=== PATIENT | male | born 1950 | race Caucasian/White ===

== ENCOUNTER 2020-04-14 05:25 | Emergency (ER) | payer MEDICARE, OTHER ==
[2020-04-14] MEDS ORDERED: NORMAL SALINE 1000 ML 1,000 ML IV ONE (11:13)
--- NOTE | 2020-04-14 11:17 | ER Document Report ---
ED General - General Chief Complaint: Constipation Stated Complaint: STOMACH PAIN/CONSTIPATION Time Seen by Provider: 04/14/20 10:40 Primary Care Provider: BEENA,LORNE [Primary Care Provider] - Follow up as needed - HPI Notes: Chief complaint: Constipation History of present illness: Weight has been stable. 69-year-old male presents with 5 days history of constipation and some abdominal cramping. No fever, chills, nausea or vomiting. Intermittent cramping in left upper quadrant. Patient took multiple [id number] laxatives without success. Has been seen twice at an urgent care center and he tried some oral mag citrate and fleets enemas unsuccessfully. Patient notes that he had a normal colonoscopy over 15 years ago. No follow-up study since then. He normally takes no regular medications and has no known allergies. He is a non-smoker and denies any use o f drugs or alcohol. Past Medical History - General Information source: Patient, Relative - Social History Smoking Status: Never Smoker Frequency of alcohol use: None Drug Abuse: None Family History: Reviewed & Not Pertinent - Past Medical History Cardiac Medical History: Reports: None Pulmonary Medical History: Reports: None Endocrine Medical History: Denies: Hx Diabetes Mellitus Type 1, Hx Diabetes Mellitus Type 2 Renal/ Medical History: Reports: None Malignancy Medical History: Reports None GI Medical History: Reports: None Past Surgical History: Reports: None Review of Systems - Review of Systems Notes: Constitutional: Negative for fever. HENT: Negative for sore throat. Eyes: Negative for visual changes. Cardiovascular: Negative for chest pain. Respiratory: Negative for shortness of breath. Gastrointestinal: As per HPI. Genitourinary: Negative for dysuria. Musculoskeletal: Negative for back pain. Skin: Negative for rash. Neurological: Negative for headaches, weakness or numbness. 10 point ROS negative except as marked above and in HPI. Physical Exam - Vital signs Vitals: Temp Pulse Resp BP Pulse Ox 98.2 F 99 18 175/97 H 97 04/14/20 05:42 04/14/20 05:42 04/14/20 05:42 04/14/20 05:42 04/14/20 05:42 Interpretation: Hypertensive - Notes Notes: GENERAL: Male patient approximately stated age appearing in no acute distress. SKIN: Good turgor no rashes. HEAD: Normocephalic atraumatic. EYES: PERRLA. EOMI. Conjunctivae and sclerae clear. EARS: CANALS AND TMS CLEAR. NOSE: CLEAR. MOUTH: Moist mucosa. Good dentition. No stridor or edema. No drooling. NECK: Supple. No masses or thyromegaly. No adenopathy. Carotids 2+ without bruits. No JVD. BACK: Symmetrical without tenderness. CHEST: Respirations unlabored. Breath sounds clear and symmetrical. HEART: Regular rhythm. No murmur gallop or rub. ABDOMEN: Mild tenderness left upper quadrant. Soft without masses, organomegaly or rebound. Bowel sounds normally active. No bruits. Rectal: Normal tone. No stool in rectal vault. Prostate smooth symmetrical and mildly enlarged. EXTREMITIES: No edema. No calf tenderness. Cap refill less than 1.5 seconds. Dorsalis pedis and posterior tibial pulses 3+ and symmetrical. NEUROLOGICAL: GCS 15. Alert and oriented x3. Normal gait. Fluent speech. Cranial nerves II through XII intact. Sensorimotor and cerebellar normal. Normal tone. PSYCHIATRIC: Appropriate affect. Course - Re-evaluation Re-evalutation: 04/14/20 15:22 Labs remarkable for an elevated glucose in the 300s with otherwise normal chemistry profile. Patient now "remembers" that he has been told that he has type 2 diabetes. He admits he is not following a diet. They recommended Metformin to him in the past but he never started the medication. [place] and has not yet established with a local physician. Acute abdominal series was unremarkable except for retained stool. We gave him a mineral oil and warm tap water enema with good results. We will send him out on MiraLAX and advised him that he needs to see a GI specialist to get a colonoscopy. He says he already has an appointment with them for next month. I checked a hemoglobin A1c level for him his diabetes is clearly out of control with a value of 14. He is agreeable to a trial of Metformin so we will start this for now referred back to his primary care doctor. Findings, clinical impression and plan of treatment have been discussed with patient/family. Understanding of current findings and recommendations has been acknowledged by them and there is agreement regarding disposition and follow-up. - Vital Signs Vital signs: Temp Pulse Resp BP Pulse Ox 98.2 F 99 19 176/98 H 99 04/14/20 05:42 04/14/20 05:42 04/14/20 11:23 04/14/20 13:30 04/14/20 13:30 - Laboratory Results Result Diagrams: 04/14/20 11:31 04/14/20 11:31 Laboratory Results Interpreted: 04/14/20 04/14/20 11:31 11:31 Sodium 134.0 L Chloride 97 L Glucose 311 H Hemoglobin A1c % > 14.0 H AST 13 L Critical Laboratory Results Reviewed: Yes Attending or Supervising Physician who Reviewed Labs: PACO ALVAREZ - Radiology Results Critical Radiology Results Reviewed: No Critical Results Discharge - Discharge Clinical Impression: Constipation, Diabetes mellitus type 2 Condition: Stable Disposition: HOME, SELF-CARE Instructions: Constipation ([facility]) Prescriptions: Metformin HCl [Glucophage 500 mg Tablet] 500 mg PO BID #60 tablet Polyethylene Glycol 3350 [Miralax Powder 17 gm/Packet] 1 packet PO DAILY #1 pkg Referrals: LOCALMD,NO [Primary Care Provider] - Follow up as needed
[2020-04-14] MEDS ORDERED: MINERAL OIL 30 ML UDCUP PR ONE (11:55)
[2020-04-14 12:02] LABS: ABSOLUTE EOSINOPHILS # (AUTO) 0.1 10^3/uL (0.0-0.6); ABSOLUTE LYMPHOCYTES (AUTO) 2.2 10^3/uL (0.5-4.7); ABSOLUTE MONOCYTES (AUTO) 0.8 10^3/uL (0.1-1.4); ABSOLUTE NEUT (AUTO) 4.4 10^3/uL (1.7-8.2); BASOPHILS % (AUTO) 0.6 % (0-2); EOSINOPHILS % (AUTO) 1.4 % (0-6); HEMATOCRIT 44.8 % (37.9-51.0); HEMOGLOBIN 15.4 g/dL (13.5-17.0); MEAN CORPUSCULAR HEMOGLOBIN 30.9 pg (27.0-33.4); MEAN CORPUSCULAR HGB CONC 34.3 g/dL (32.0-36.0); MEAN CORPUSCULAR VOLUME 90 fl (80-97); MONOCYTES % (AUTO) 10.4 % (3-13); PLATELET COUNT 286 10^3/uL (150-450); RED BLOOD COUNT 4.97 10^6/uL (4.35-5.55); RED CELL DISTRIBUTION WIDTH 13.6 % (11.5-14.0); SEGMENTED NEUTROPHILS % (AUTO) 58.6 % (42-78); TOTAL CELLS COUNTED % (AUTO) 100 %; WHITE BLOOD COUNT 7.6 10^3/uL (4.0-10.5)
[2020-04-14 12:09] LABS: ALBUMIN 3.8 g/dL (3.5-5.0); ALKALINE PHOSPHATASE 64 U/L (38-126); ANION GAP 9 (5-19); ASPARTATE AMINO TRANSFERASE 13 U/L (17-59); BILIRUBIN,DIRECT 0.2 mg/dL (0.0-0.4); BILIRUBIN,TOTAL 0.7 mg/dL (0.2-1.3); BLOOD UREA NITROGEN 12 mg/dL (7-20); CALCIUM 9.4 mg/dL (8.4-10.2); CARBON DIOXIDE 28 mmol/L (22-30); CHLORIDE 97 mmol/L (98-107); GLUCOSE 311 mg/dL (75-110); POTASSIUM 4.2 mmol/L (3.6-5.0); TOTAL PROTEIN 6.7 g/dL (6.3-8.2)
--- NOTE | 2020-04-14 12:10 | RADIOLOGY REPORT (SQ) ---
EXAM DESCRIPTION: ACUTE ABDOMEN SERIES IMAGES COMPLETED DATE/TIME: 04/14/2020 11:54 am REASON FOR STUDY: abd. pain, constipation COMPARISON: None. NUMBER OF VIEWS: Three views. TECHNIQUE: Frontal chest, supine abdomen and upright/decubitus abdomen radiographic images acquired. LIMITATIONS: None. FINDINGS: CHEST: Lungs clear of infiltrates. FREE AIR: None. No abnormal gas collections. BOWEL GAS PATTERN: Nonobstructive pattern. No dilated loops or air fluid levels. CALCIFICATIONS: No suspicious calcifications. HARDWARE: None in the abdomen. SOFT TISSUES: No gross mass or suggestion of organomegaly. BONES: No acute fracture. No worrisome bone lesions. OTHER: No other significant finding. IMPRESSION: NO RADIOGRAPHIC EVIDENCE FOR ACUTE ABDOMINAL DISEASE. TECHNICAL DOCUMENTATION: JOB ID: [id number] 2010 [employer]- All Rights Reserved Reading location - IP/workstation name: [email or web address]
[2020-04-14 15:49] VITALS: BP 147/94
== END 2020-04-14 15:55 | disposition home or self-care (01) ==
LOC: ER 05:25
DX: K59.00 Constipation, unspecified (principal); R10.12 Left upper quadrant pain; R10.812 Left upper quadrant abdominal tenderness; E11.65 Type 2 diabetes mellitus with hyperglycemia
CPT/HCPCS: 99284; 96360; 96361; 36415; 85025; 80053; 83036; 74022; A9270; J7030; J3490

== ENCOUNTER 2020-04-16 20:52 | Emergency (ER) | payer MEDICARE, OTHER ==
--- NOTE | 2020-04-16 22:48 | ER Document Report ---
ED Medical Screen (RME) - General Chief Complaint: Abdominal Pain Stated Complaint: STOMACH PAIN,CONSTIPATION Time Seen by Provider: 04/16/20 22:42 Primary Care Provider: LORNE HARGROVE [Primary Care Provider] - Follow up as needed - HPI Notes: Patient is a 69-year-old male with a history of HTN and DM who presents with abdominal pain and constipation. Patient was seen in the ED 2 days ago and was treated with a enema which provided no relief here in the ED. However, since returning home patient has not had a bowel movement even as he continues to take MiraLAX and Dulcolax. He continues to report pain abdominal pressure. He denies nausea, vomiting, and fever. - Related Data Allergies/Adverse Reactions: No Known Allergies Allergy (Unverified 04/14/20 16:03) Past Medical History Endocrine Medical History: Denies: Hx Diabetes Mellitus Type 1, Hx Diabetes Mellitus Type 2 Physical Exam - Vital signs Vitals: Temp Pulse Resp BP Pulse Ox 98.5 F 85 20 146/92 H 96 04/16/20 21:06 04/16/20 21:06 04/16/20 21:06 04/16/20 21:06 04/16/20 21:06 - Abdominal Bowel sounds: Normal Tenderness: Nontender Course - Re-evaluation Re-evalutation: I have greeted and performed a rapid initial assessment of this patient. A comprehensive ED assessment and evaluation of the patient, analysis of test r esults and completion of medical decision making process will be conducted by an additional ED providers. - Vital Signs Vital signs: Temp Pulse Resp BP Pulse Ox 98.5 F 85 20 146/92 H 96 04/16/20 21:06 04/16/20 21:06 04/16/20 21:06 04/16/20 21:06 04/16/20 21:06 Doctor's Discharge - Discharge Referrals: LORNE HARGROVE [Primary Care Provider] - Follow up as needed
--- NOTE | 2020-04-16 23:29 | RADIOLOGY REPORT (SQ) ---
CLINICAL HISTORY: abdominal pain/constipation COMPARISON: None. 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 There are no abnormal radiopaque foreign bodies or abnormal calcifications. Osseous structures are grossly unremarkable. The heart is normal in size. There is mild bibasilar atelectasis. IMPRESSION: Constipation.
[2020-04-17 00:40] LABS: ABSOLUTE BASOPHILS # (AUTO) 0.1 10^3/uL (0.0-0.2); ABSOLUTE EOSINOPHILS # (AUTO) 0.1 10^3/uL (0.0-0.6); ABSOLUTE LYMPHOCYTES (AUTO) 2.2 10^3/uL (0.5-4.7); ABSOLUTE MONOCYTES (AUTO) 0.8 10^3/uL (0.1-1.4); ABSOLUTE NEUT (AUTO) 4.5 10^3/uL (1.7-8.2); BASOPHILS % (AUTO) 0.9 % (0-2); EOSINOPHILS % (AUTO) 1.7 % (0-6); HEMATOCRIT 48.5 % (37.9-51.0); HEMOGLOBIN 16.8 g/dL (13.5-17.0); LYMPHOCYTES % (AUTO) 29.1 % (13-45); MEAN CORPUSCULAR HEMOGLOBIN 31.8 pg (27.0-33.4); MEAN CORPUSCULAR HGB CONC 34.6 g/dL (32.0-36.0); MEAN CORPUSCULAR VOLUME 92 fl (80-97); PLATELET COUNT 331 10^3/uL (150-450); RED BLOOD COUNT 5.27 10^6/uL (4.35-5.55); RED CELL DISTRIBUTION WIDTH 13.6 % (11.5-14.0); SEGMENTED NEUTROPHILS % (AUTO) 58.3 % (42-78); TOTAL CELLS COUNTED % (AUTO) 100 %; WHITE BLOOD COUNT 7.7 10^3/uL (4.0-10.5)
[2020-04-17 00:56] LABS: ALBUMIN 4.3 g/dL (3.5-5.0); ALKALINE PHOSPHATASE 63 U/L (38-126); ANION GAP 11 (5-19); ASPARTATE AMINO TRANSFERASE 16 U/L (17-59); BILIRUBIN,DIRECT 0.3 mg/dL (0.0-0.4); BILIRUBIN,TOTAL 0.7 mg/dL (0.2-1.3); BLOOD UREA NITROGEN 13 mg/dL (7-20); CALCIUM 9.8 mg/dL (8.4-10.2); CARBON DIOXIDE 28 mmol/L (22-30); CHLORIDE 100 mmol/L (98-107); GLUCOSE 317 mg/dL (75-110); POTASSIUM 4.5 mmol/L (3.6-5.0); TOTAL PROTEIN 7.6 g/dL (6.3-8.2)
--- NOTE | 2020-04-17 01:51 | ER Document Report ---
ED GI/ - General Chief Complaint: Abdominal Pain Stated Complaint: STOMACH PAIN,CONSTIPATION Time Seen by Provider: 04/16/20 22:42 Primary Care Provider: KEMI HART MD [ACTIVE STAFF] - Follow up as needed LORNE HARGROVE [NO LOCAL MD] - Follow up as needed Mode of Arrival: Ambulatory Information source: Patient TRAVEL OUTSIDE OF THE [place] IN LAST 30 DAYS: No - Related Data Allergies/Adverse Reactions: No Known Allergies Allergy (Unverified 04/14/20 16:03) Past Medical History - Social History Smoking Status: Current Every Day Smoker Family History: Reviewed & Not Pertinent Endocrine Medical History: Denies: Hx Diabetes Mellitus Type 1, Hx Diabetes Mellitus Type 2 Physical Exam - Vital signs Vitals: Temp Pulse Resp BP Pulse Ox 98.5 F 85 20 146/92 H 96 04/16/20 21:06 04/16/20 21:06 04/16/20 21:06 04/16/20 21:06 04/16/20 21:06 Course - Re-evaluation Re-evalutation: 04/17/20 01:50 patient is resting comfortably no acute distress noted. Reviewed lab and x-ray results with patient. Patient with elevated lipase no history of gallbladder disease or liver disease. Will check CT abdomen and pelvis with IV contrast. Patient is agreeable to additional testing 04/17/20 04:18 Patient remains pain-free at this time. No nausea, no vomiting. Reviewed all remaining labs, CT abdomen and pelvis with patient. Discussed findings of acute pancreatitis, questionable mass at the pancreatic head, diverticulosis, gallstone, stool in the proximal colon. Case was staffed with my attending Dr. Borrego who recommends patient be discharged home on Zofran, p.o. magnesium citrate, clear liquid diet, outpatient follow-up with junior legal secretary as discussed. Vital signs are stable. Patient is afebrile. Remaining labs within normal limits. All questions were answered. Patient was given strict return to the emergency room guidelines. Return for any new or worsening symptoms. All questions were answered. Patient verbalized understanding and agrees with plan of care. - Vital Signs Vital signs: Temp Pulse Resp BP Pulse Ox 97.8 F 83 22 H 152/86 H 100 04/17/20 04:37 04/17/20 04:37 04/17/20 04:37 04/17/20 04:37 04/17/20 04:37 - Laboratory Results Result Diagrams: 04/17/20 00:24 04/17/20 00:24 Laboratory Results Interpreted: 04/17/20 00:24 Glucose 317 H AST 16 L Lipase 475.3 H Critical Laboratory Results Reviewed: Yes - Lipase 475.3 Attending or Supervising Physician who Reviewed Labs: PRAVEEN BORREGO IV - Patient is stable for discharge - Radiology Results Critical Radiology Results Reviewed: Yes - Mild acute pancreatitis, questionable mass pancreatic head Attending or Supervising Physician who Reviewed Radiology: PRAVEEN BORREGO IV - Patient is stable for discharge Discharge - Discharge Clinical Impression: Diverticulosis, Pancreatic mass Pancreatitis, acute Qualifiers: Pancreatitis type: unspecified pancreatitis type Acute pancreatitis complication: unspecified Qualified Code(s): K85.90 - Acute pancreatitis without necrosis or infection, unspecified Constipation Qualifiers: Constipation type: unspecified constipation type Qualified Code(s): K59.00 - Constipation, unspecified Gallstone Qualifiers: Cholecystitis presence: with cholecystitis Cholecystitis acuity: acute Biliary obstruction: without biliary obstruction Qualified Code(s): K80.00 - Calculus of gallbladder with acute cholecystitis without obstruction Condition: Stable Disposition: HOME, SELF-CARE Instructions: Clear Liquid Diet ([facility]), Gallbladder Disease ([facility]), Pancreatitis ([facility]) Additional Instructions: Take Zofran as needed for nausea. Drink half a bottle of magnesium citrate if no bowel movement within 12 hours drink the other half of magnesium citrate. Continue with your MiraLAX. Clear liquid diet for the next 48 hours. Follow-up with your junior legal secretary as scheduled. Return to the emergency room for any new or worsening symptoms. Referrals: LORNE HARGROVE [NO LOCAL MD] - Follow up as needed KEMI HART MD [ACTIVE STAFF] - Follow up as needed
--- NOTE | 2020-04-17 02:27 | RADIOLOGY REPORT (SQ) ---
CLINICAL HISTORY: abdominal pain COMPARISON: None. TECHNIQUE: CT ABDOMEN PELVIS WITH IV CONTRAST on 04/17/2020 1:49 AM [employer] SERVER This exam was performed according to our departmental dose-optimization program, which includes automated exposure control, adjustment of the mA and/or kV according to patient size and/or use of iterative reconstruction technique. FINDINGS: Lower lungs are clear. Abdomen: The liver is normal in appearance. There is no biliary dilatation. Gallbladder contains a tiny gallstone. There are mild inflammatory changes surrounding the pancreatic head. There is mild fullness of the pancreatic head and uncinate process. Spleen is normal in size. The adrenal glands and kidneys are unremarkable. Abdominal aorta is normal in course and caliber without aneurysm. There is no free air. There is no retroperitoneal adenopathy. Pelvis: There is mild distal colonic diverticulosis. Urinary bladder is unremarkable. There is no free fluid. Appendix is normal. Skeleton: There are no acute osseous findings. No suspicious bony lesions. IMPRESSION: Mild acute pancreatitis. Consider follow-up imaging to exclude an underlying mass in the pancreatic head.
[2020-04-17] MEDS ORDERED: MAGNESIUM CITRATE 296 ML BOTTLE PO ONE (04:17)
[2020-04-17] MEDS ORDERED: ONDANSETRON ODT 4 MG TAB (6 TAB/ER DISP) PO PRN (04:17)
[2020-04-17 04:37] VITALS: BP 152/86
== END 2020-04-17 04:37 | disposition home or self-care (01) ==
LOC: ER 20:52
DX: K57.90 Diverticulosis of intestine, part unspecified, without perforation or abscess without bleeding (principal); K85.90 Acute pancreatitis without necrosis or infection, unspecified; K86.9 Disease of pancreas, unspecified; K59.00 Constipation, unspecified; R10.9 Unspecified abdominal pain; F17.200 Nicotine dependence, unspecified, uncomplicated
CPT/HCPCS: 99285; 36415; 82150; 83690; 85025; 80053; 74022; 74177; A9270 ×2; J3490